=== PATIENT | female | born 1985 | race Caucasian/White ===

== ENCOUNTER 2023-11-25 19:16 | Emergency (ER) | payer SELFPAY | END 2023-11-25 20:47 | disposition home or self-care (01) | LOC: CSHERS 19:16 | DX: H61.23 Impacted cerumen, bilateral (principal); H92.03 Otalgia, bilateral; F17.210 Nicotine dependence, cigarettes, uncomplicated; F17.290 Nicotine dependence, other tobacco product, uncomplicated | CPT/HCPCS: 99282 ==